=== PATIENT | female | born 1960 | race Caucasian/White ===

== ENCOUNTER → 2024-04-15 08:53 | Outpatient (REF) | payer BC, SELFPAY | LOC: WDC 08:53 | PROVIDERS: ATTENDING PHYSICIAN Family Medicine | DX: Z12.31 Encounter for screening mammogram for malignant neoplasm of breast (principal) | CPT/HCPCS: 77063; 77067 ==

== ENCOUNTER → 2024-04-21 08:47 | Outpatient (REF) | payer BC, SELFPAY | LOC: RAD 08:47 | PROVIDERS: ATTENDING PHYSICIAN Family Medicine | DX: Z78.0 Asymptomatic menopausal state (principal) | CPT/HCPCS: 77080 ==

== ENCOUNTER → 2025-04-21 08:34 | Outpatient (REF) | payer BC, SELFPAY | LOC: WDC 08:34 | PROVIDERS: ATTENDING PHYSICIAN Family Medicine | DX: Z12.31 Encounter for screening mammogram for malignant neoplasm of breast (principal); Z12.39 Encounter for other screening for malignant neoplasm of breast | CPT/HCPCS: 77063; 77067 ==

== ENCOUNTER → 2025-04-27 10:18 | Outpatient (REF) | payer BC, SELFPAY | LOC: WDC 10:18 | PROVIDERS: ATTENDING PHYSICIAN Family Medicine | DX: R92.8 Other abnormal and inconclusive findings on diagnostic imaging of breast (principal) | CPT/HCPCS: 76642 ==

== ENCOUNTER → 2025-05-04 07:31 | Outpatient (REF) | payer BC, SELFPAY | LOC: WDC 07:31 | PROVIDERS: ATTENDING PHYSICIAN Family Medicine | DX: N63.20 Unspecified lump in the left breast, unspecified quadrant (principal) | CPT/HCPCS: 19083; 88305; A4648 ==